=== PATIENT | female | born 1995 | race Caucasian/White ===

== ENCOUNTER 2022-02-23 09:25 | Inpatient (IN) | payer OTHER, SELFPAY ==
[2022-02-23] MEDS ORDERED: Ondansetron PF 4 MG/2 ML Vial IVP PRN ×2 (10:23→21:04)
[2022-02-23] MEDS ORDERED: hydrALAZINE 20 MG/ML VIAL SLOW IVP PRN (10:23)
[2022-02-23] MEDS ORDERED: Fentanyl 100 MCG/2 ML VIAL SLOW IVP PRN (10:23)
[2022-02-23] MEDS ORDERED: Misoprostol 200 MCG TAB PR PRN (10:23)
[2022-02-23] MEDS ORDERED: Promethazine HCl 25 MG/ML VIAL IM PRN (10:23)
[2022-02-23] MEDS ORDERED: Lidocaine 1% (PF) 30 ML VIAL SC PRN (10:23)
[2022-02-23] MEDS ORDERED: Carboprost 250 MCG/ML AMP IM PRN (10:23)
[2022-02-23] MEDS ORDERED: Methylergonovine 0.2 MG/ML VIAL IM PRN ×2 (10:23→21:04)
[2022-02-23] MEDS ORDERED: Ibuprofen 800 MG TAB PO PRN (10:23)
[2022-02-23] MEDS ORDERED: Acetaminophen 500 MG TAB PO PRN (10:23)
[2022-02-23] MEDS ORDERED: Butorphanol Tartrate 1 MG/ML VIAL SLOW IVP PRN (10:23)
[2022-02-23] MEDS ORDERED: Lactated Ringer's 1,000 ML IV SCH (10:30)
[2022-02-23] MEDS ORDERED: NS w/ Oxytocin 30 units 500 ML IV SCH ×2 (10:30)
[2022-02-23 13:18] LABS: ALT (SGPT) 25 U/L (8-55); AST (SGOT) 30 U/L (5-34); Albumin 3.6 g/dL (3.5-5.0); Alkaline Phosphatase 291 U/L (40-110); Anion Gap 14 mmol/L (10-20); BUN (Urea Nitrogen) 9 mg/dL (7.0-18.7); Bilirubin, Total 0.3 mg/dL (0.2-1.2); Calc. Creatinine Clearance 0 mL/min (70-130); Calcium 9.6 mg/dL (7.8-10.44); Carbon Dioxide 19 mmol/L (22-29); Chloride 107 mmol/L (98-107); Estimated GFR 122; Globulin 2.5 g/dL (2.4-3.5); Glucose 64 mg/dL (70-105); Hemoglobin 13.6 g/dL (12.0-15.5); Mean Corpuscular HGB CONC 34.3 g/dL (32.0-36.0); Mean Corpuscular Hemoglobin 29.5 pg (27.0-33.0); Mean Corpuscular Volume 85.9 fl (81.6-98.3); Mean Platelet Volume 12.9 fl (7.4-10.4); Platelet Count 148 10x3/uL (150-450); Potassium 4.2 mmol/L (3.5-5.1); Protein, Total 6.1 g/dL (6.0-8.3); RBC Distribution Width 13.5 % (11.5-14.5); Red Blood Cell (RBC) Count 4.61 10x6/uL (3.90-5.03); Sodium 136 mmol/L (136-145); White Blood Cell (WBC) Count 8.4 10x3/uL (3.5-10.5)
[2022-02-23 13:36] LABS: HBSAg Index 0.17 S/CO (0-0.99); HIV (1/2) Antibody/Antigen Non-Reactive (NonReactive); HIV 1/2 INDEX 0.08 S/CO (<1.00); Hep B Surf Ag Non-Reactive S/CO (NonReactive)
[2022-02-23 13:37] VITALS: BMI 32.9
[2022-02-23 13:37] LABS: Syphilis Antibody Nonreactive (Nonreactive); Syphilis Antibody Index 0.03 S/CO (<1.00 Non-Reactive)
[2022-02-23 14:20] LABS: Creatinine, Urine Less than 20.00 mg/dL (47-110); Protein, Urine Random Quant Less than 10 mg/dL (1-14)
[2022-02-23] MEDS ORDERED: Lidocaine 1% (PF) 30 ML VIAL ONE (16:37)
[2022-02-23] MEDS ORDERED: Boostrix 0.5 ML (Tdap) VIAL (>/=7 yrs of age) IM ONE (21:04)
[2022-02-23] MEDS ORDERED: diphenhydrAMINE 25 MG CAP PO PRN (21:04)
[2022-02-23] MEDS ORDERED: Misoprostol 200 MCG TAB VAG PRN (21:04)
[2022-02-23] MEDS ORDERED: Benzocaine-Menthol 82.5 ML CAN TOP PRN (21:04)
[2022-02-23] MEDS ORDERED: Bisacodyl 10 MG SUPP PR PRN (21:04)
[2022-02-23] MEDS ORDERED: Milk Of Magnesia 30 ML UDCUP PO PRN (21:04)
[2022-02-23] MEDS ORDERED: Preparation H Ointment 28 GM TUBE PR PRN (21:04)
[2022-02-23] MEDS: Docusate 100 MG CAP PO SCH (21:55)
[2022-02-23] MEDS: Ibuprofen 800 MG TAB PO SCH (21:55)
[2022-02-24] MEDS: Ibuprofen 800 MG TAB PO SCH ×2 (06:43→14:13)
[2022-02-24] MEDS ORDERED: Prenatal Vitamin 1 TAB PO SCH (09:00)
[2022-02-24] MEDS: Docusate 100 MG CAP PO SCH (09:07)
[2022-02-24] MEDS: Ferrous Sulfate 325 MG TAB PO SCH ×2 (09:07→14:34)
[2022-02-24 12:55] VITALS: BP 136/87; TEMP 98.4
== END 2022-02-24 17:00 | disposition home or self-care (01) | DRG 807 ==
LOC: CSHLD 09:25 → CSHPP 20:25
PROVIDERS: ADMIT Obstetrics & Gynecology; ATTEND Obstetrics & Gynecology
PROC: 10E0XZZ Delivery of Products of Conception, External Approach (ICD-10-PCS; principal; 2022-02-23)
PROC: 10907ZC Drainage of Amniotic Fluid, Therapeutic from Products of Conception, Via Natural or Artificial Opening (ICD-10-PCS; 2022-02-23)
PROC: 0HQ9XZZ Repair Perineum Skin, External Approach (ICD-10-PCS; 2022-02-23)
DX: O48.0 Post-term pregnancy (principal); Z37.0 Single live birth; Z3A.42 42 weeks gestation of pregnancy; O70.0 First degree perineal laceration during delivery; E66.9 Obesity, unspecified; O99.214 Obesity complicating childbirth; O99.814 Abnormal glucose complicating childbirth; Z90.49 Acquired absence of other specified parts of digestive tract
CPT/HCPCS: 36415; 80053; 82570; 84156; 85027; 86780; 86850; 86900; 86901; 87340; 87389